=== PATIENT | female | born 1975 | race Caucasian/White ===

== ENCOUNTER → 2017-10-17 | Day surgery (SDC) | payer OTHER ==
[2017-09-29 14:45] VITALS: Ht 157.5 cm; Wt 65.9 kg
[~2017-10-17] VITALS: Ht 157.5 cm; Wt 65.9 kg
[~2017-10-17] MED LIST: CLON1TAB3 PO; GABA100C13 PO; IRON INFUSION IV; LIDOCAINE HCL 2% 2 ML VIAL (20MG/ML) ONE; MULT-506 PO; PANT40TA PO; PHENPAK2 PO; PROPOFOL IV EMULSION 10 MG/ML 20 ML VIAL IV ONE; SERT-234 PO; SODIUM CHLORIDE 0.9% 500ML 500 ML IV ONE; SUCR1TAB29 PO
--- NOTE | 2017-10-17 15:27 | Endo History and Physical ---
History & Physical Date of Service: Oct 17, 2017. Chief Complaint: anemia Referring Physician: Dr. Bob Gilmore History of Present Illness anemia Past Surgical History Hx Cardiac Surgery: No Hx Internal Defibrillator: No Hx Pacemaker: No Hx Abdominal Surgery: Yes (GASTRIC BYPASS, ALEXANDRA, PARTIAL HYSTER) Hx of Implantable Prosthesis: No Hx Post-Op Nausea and Vomiting: Yes Hx Cancer Surgery: No Hx Thoracic Surgery: No Hx Orthopedic: Yes (RT WRIST AND THUMB X2) Hx Urinary Tract Surgery: No Family History None Social History Smoking Status: Former Smoker Hx Substance Use: No Hx Alcohol Use: Yes (RARELY) Allergies Coded Allergies: No Known Allergies (Unverified , 09/29/17) Current Medications Reported Home Medications Medications Dose Route/Sig Max Daily Dose Days Date Category Theraflu Cold & Cough (Qsopiiqsiwayg-Ufiuaghmmam-Ta) 1 Brock Brock 1 Dose PO HS PRN 09/29/17 Reported [Iron Infusion] 1 Dose IV Q6MO 09/29/17 Reported Multivitamin (Multivitamins) Tab 1 Tab PO DAILY 09/29/17 Reported Protonix (Pantoprazole Sodium) 40 Mg Tab 40 Mg PO LUNCH 09/29/17 Reported Carafate (Sucralfate) 1 Gm Tab 1 Gm PO QID 09/29/17 Reported Klonopin (Clonazepam) 1 Mg Tab 2 Tabs PO HS 09/29/17 Reported Klonopin (Clonazepam) 1 Mg Tab 1 Mg PO BID 09/29/17 Reported Zoloft (Sertraline HCl) 100 Mg Tab 100 Mg PO QAM 09/29/17 Reported Neurontin (Gabapentin) 100 Mg Cap 100 Mg PO BID 09/29/17 Reported Vital Signs Weight (Kilograms): 65.91 Height (Feet): 5 Height (Inches): 2 Date Time Temp Pulse Resp B/P (MAP) Pulse Ox O2 Delivery O2 Flow Rate FiO2 10/17/17 14:28 36.4 72 20 114/62 (79) 98 Room Air Physical Exam General Appearance: WD/WN, no apparent distress Respiratory/Chest: Auscultation: breath sounds normal Cardiovascular: Heart Auscultation: RRR Abdomen: Bowel Sounds: normal Inspection & Palpation: soft, non-distended, no tenderness, guarding & rebound Assessment and Plan EGD with bx
--- NOTE | 2017-10-17 15:48 | GI REPORT ---
Procedure Date: 10/17/2017 3:26 PM Procedure: Upper GI endoscopy Indications: Iron deficiency anemia, Diarrhea, Weight loss Medicines: Propofol per Anesthesia Complications: No immediate complications. Estimated blood loss: Minimal. Estimated Blood Loss: Estimated blood loss was minimal. Procedure: Pre-Anesthesia Assessment: - Prior to the procedure, a History and Physical was performed, and patient medications and allergies were reviewed. The patient's tolerance of previous anesthesia was also reviewed. The risks and benefits of the procedure and the sedation options and risks were discussed with the patient. All questions were answered, and informed consent was obtained. Prior Anticoagulants: The patient has taken no previous anticoagulant or antiplatelet agents. ASA Grade Assessment: II - A patient with mild systemic disease. After reviewing the risks and benefits, the patient was deemed in satisfactory condition to undergo the procedure. After obtaining informed consent, the endoscope was passed under direct vision. Throughout the procedure, the patient's blood pressure, pulse, and oxygen saturations were monitored continuously. The scope was introduced through the mouth, and advanced to the jejunum. The upper GI endoscopy was accomplished without difficulty. The patient tolerated the procedure well. Findings: The examined esophagus was normal. The Z-line was regular and was found 39 cm from the incisors. Evidence of a gastric bypass was found. A gastric pouch with a normal size was found. The staple line appeared intact. The gastrojejunal anastomosis was characterized by healthy appearing mucosa. This was traversed. The ggrcg-wy-ciyrneu limb was characterized by healthy appearing mucosa. The examined jejunum was normal. Biopsies were taken with a cold forceps for histology. Estimated blood loss was minimal. Verification of patient identification for the specimen was done by the physician and vascular ultrasound technician using the patient's name and medical record number. The cardia and gastric fundus were normal on retroflexion. Impression: - Normal esophagus. - Z-line regular, 39 cm from the incisors. - Gastric bypass with a normal-sized pouch and intact staple line. Gastrojejunal anastomosis characterized by healthy appearing mucosa. - Normal examined jejunum. Biopsied. Recommendation: - Discharge patient to home (ambulatory). - Resume regular diet. - Continue present medications. - Await pathology results. - Return to GI clinic as previously scheduled. MD Arun Quiñones MD 10/17/2017 3:48:07 PM This report has been signed electronically. Note Initiated On: 10/17/2017 3:26 PM I attest to the content of the Intraoperative Record and orders documented therein, exceptions below
--- NOTE | 2017-10-17 15:51 | Discharge Instructions ---
Endoscopy Patient Instructions Date / Procedure(s) Performed Oct 17, 2017. EGD Allergy Information Coded Allergies: No Known Allergies (Unverified , 09/29/17) Discharge Date / Findings Oct 17, 2017. normal post GBS EGD Medication Instructions Restart Stopped Medication(s): Reported Home Medications Medications Dose Route/Sig Max Daily Dose Days Date Category Theraflu Cold & Cough (Fpffiyonytjym-Lfmrytsmqgz-Ie) 1 Brock Brock 1 Dose PO HS PRN 09/29/17 Reported [Iron Infusion] 1 Dose IV Q6MO 09/29/17 Reported Multivitamin (Multivitamins) Tab 1 Tab PO DAILY 09/29/17 Reported Protonix (Pantoprazole Sodium) 40 Mg Tab 40 Mg PO LUNCH 09/29/17 Reported Carafate (Sucralfate) 1 Gm Tab 1 Gm PO QID 09/29/17 Reported Klonopin (Clonazepam) 1 Mg Tab 2 Tabs PO HS 09/29/17 Reported Klonopin (Clonazepam) 1 Mg Tab 1 Mg PO BID 09/29/17 Reported Zoloft (Sertraline HCl) 100 Mg Tab 100 Mg PO QAM 09/29/17 Reported Neurontin (Gabapentin) 100 Mg Cap 100 Mg PO BID 09/29/17 Reported Reported Home Medications Medications Dose Route/Sig Max Daily Dose Days Date Category Theraflu Cold & Cough (Ezpiwscqpughi-Iyborudgcmk-Vl) 1 Brock Brock 1 Dose PO HS PRN 09/29/17 Reported [Iron Infusion] 1 Dose IV Q6MO 09/29/17 Reported Multivitamin (Multivitamins) Tab 1 Tab PO DAILY 09/29/17 Reported Protonix (Pantoprazole Sodium) 40 Mg Tab 40 Mg PO LUNCH 09/29/17 Reported Carafate (Sucralfate) 1 Gm Tab 1 Gm PO QID 09/29/17 Reported Klonopin (Clonazepam) 1 Mg Tab 2 Tabs PO HS 09/29/17 Reported Klonopin (Clonazepam) 1 Mg Tab 1 Mg PO BID 09/29/17 Reported Zoloft (Sertraline HCl) 100 Mg Tab 100 Mg PO QAM 09/29/17 Reported Neurontin (Gabapentin) 100 Mg Cap 100 Mg PO BID 09/29/17 Reported Provider Instructions Activity Restrictions - No exercising or heavy lifting for 24 hours. - Do not drink alcohol the day of the procedure. - Do not drive a car or operate machinery until the day after the procedure. - Do not make any important decisions or sign important papers in 24 hours after the procedure. Following Day: - Return to full activity which may include returning to work/school. Diet Start your diet with liquids and light foods (jello, soup, juice, toast). Then eat your usual diet if not nauseated. Treatment For Common After Affects For mild abdominal pain, bloating, or excessive gas: - Rest - Eat lightly - Lie on right side Follow-Up Information Follow-up with Dr. Bob Gilmore as scheduled Anesthesia Information What You Should Know You have had a procedure that required some medicine to reduce anxiety and discomfort. This treatment is called moderate sedation. After receiving the treatment, you may be sleepy, but you will be able to breathe on your own. The effects of the treatment may last for several hours. Follow these instructions along with Activity/Diet recommendations noted above: * Do NOT do anything where dizziness or clumsiness would be dangerous. * Rest quietly at home today, then you can be up and about tomorrow. * Have a responsible person stay with you the rest of today. * You may have had an I.V. today. If so, you may take the dressing off later today. Recommendations Call your doctor if: * Trouble breathing * Continuous vomiting for more than 24 hours * Temperature above 101 degrees * Severe abdominal pain or bloating * Pain not relieved by pain medicine ordered * There is increased drainage or redness from any incision * A large amount of rectal bleeding greater than 2-3 tablespoons. (If you had a polyp/s removed or have hemorrhoids, a small amount of blood - from the rectum is to be expected.) * You have any unanswered questions or concerns. IN THE EVENT OF A SERIOUS EMERGENCY, GO TO THE NEAREST EMERGENCY ROOM Your discharge instructions were prepared by provider Arun Waggoner. Patient Instructions Signature Page Penelope Corona Patient (or Guardian) Signature/Date: I have read and understand the instructions given to me by my caregivers. Caregiver/RN/Doctor Signature/Date: The above-named patient and/or guardian has received patient instructions on this date. + Original Patient Signature Page (only) stays with chart. Please make copy for patient.
--- NOTE | 2017-10-17 16:13 | Anesthesiology Progress Note ---
Anesthesia Post Op Note Date & Time Oct 17, 2017 at 16:13 Vital Signs Pain Intensity: 0 Vital Signs Past 12 Hours Date Time Temp Pulse Resp B/P (MAP) Pulse Ox O2 Delivery O2 Flow Rate FiO2 10/17/17 16:00 66 18 117/74 (88) 97 Room Air 10/17/17 15:47 66 16 105/74 (84) 97 Room Air 10/17/17 14:28 36.4 72 20 114/62 (79) 98 Room Air Notes Mental Status: alert / awake / arousable, participated in evaluation Pt Amnestic to Procedure: Yes Nausea / Vomiting: adequately controlled Pain: adequately controlled Airway Patency, RR, SpO2: stable & adequate BP & HR: stable & adequate Hydration State: stable & adequate Anesthetic Complications: no major complications apparent
[2017-10-17 16:14] VITALS: BP 118/77; PULSE 63; O2SAT 99
== END | disposition home or self-care (01) ==
LOC: C.GI 14:02 → EDSTATUS 14:30
PROVIDERS: ATTEND Internal Medicine Gastroenterology
DX: D50.9 Iron deficiency anemia, unspecified (principal); R11.0 Nausea; R63.4 Abnormal weight loss; Z98.84 Bariatric surgery status; Z87.891 Personal history of nicotine dependence; Z79.899 Other long term (current) drug therapy